=== PATIENT | male | born 1970 | race Two or more races ===

== ENCOUNTER 2021-03-13 09:34 | Inpatient (IN) | payer OTHER ==
[~2021-03-13] VITALS: Ht 170.2 cm; Wt 79.5 kg
[2021-03-13] MEDS ORDERED: BUPRENORPHINE HCL/NALOXONE HCL 8-2 MG SUBLINGUAL TABLET SL ONE ×2 (11:15→12:30)
[2021-03-13] MEDS ORDERED: ACETAMINOPHEN 325 MG TABLET PO PRN (11:30)
[2021-03-13 12:00] LABS: BASOPHILS % (AUTO) 0.7 % (0.0-2.0); EOSINOPHILS % (AUTO) 0.7 % (1.0-6.0); HEMATOCRIT 42.1 % (41-53); LYMPHOCYTES # (AUTO) 2.2 K/uL (1.0-4.8); LYMPHOCYTES % (AUTO) 27.7 % (22.0-44.0); MEAN CORPUSCULAR HEMOGLOBIN 29.8 pg (26.0-34.0); MEAN CORPUSCULAR HGB CONC 33.2 G/dL (31.0-37.0); MEAN CORPUSCULAR VOLUME 90 fL (80-100); MONOCYTES # (AUTO) 0.6 K/uL (0.1-1.0); NEUTROPHILS # (AUTO) 5.1 K/uL (1.8-7.7); NEUTROPHILS % (AUTO) 63.9 % (40.0-70.0); PLATELET COUNT (AUTO) 297 K/uL (150-450); RED BLOOD CELL COUNT(AUTO) 4.69 MIL/uL (4.50-5.90); RED CELL DISTRIBUTION WIDTH 13.4 % (11.5-14.5)
[2021-03-13 12:07] LABS: ANION GAP 9 mmol/L (8-16); CARBON DIOXIDE 28 mmol/L (22-29); CHLORIDE 100 mmol/L (98-107); CREATININE 0.56 mg/dL (0.60-1.30); GLOMERULAR FILTR. RATE CALC > 60 mL/min (>60); GLUCOSE,RANDOM 96 mg/dL (70-110); POTASSIUM 3.7 mmol/L (3.5-5.1); SODIUM SERUM 137 mmol/L (136-145); UREA NITROGEN, BLOOD 11 mg/dL (7-18)
[2021-03-13 12:11] LABS: COVID AG,FIA SOURCE NASOPHARYNGEAL
[2021-03-13 12:14] LABS: ALANINE AMINOTRANSFERASE 62 U/L (12-78); ALKALINE PHOSPHATASE 117 U/L (46-116); ASPARTATE AMINOTRANSFERASE 39 U/L (15-37); BILIRUBIN,TOTAL 0.5 mg/dL (0.1-1.0)
[2021-03-13] MEDS ORDERED: LORazepam 2 MG/ML VIAL IM ONE (12:30)
[2021-03-13] MEDS ORDERED: ONDANSETRON HCL 4 MG TABLET PO ONE (12:30)
[2021-03-13 13:44] VITALS: BP 131/76
[2021-03-13] MEDS ORDERED: SODIUM CHLORIDE 0.9% 1,000 ML IV ONE (13:45)
[2021-03-13] MEDS ORDERED: LOPERAMIDE HCL 2 MG CAPSULE PO PRN (13:45)
[2021-03-13] MEDS: LORazepam 2 MG/ML VIAL IVP PRN (16:08)
[2021-03-13 17:08] VITALS: BP 137/81
[2021-03-13] MEDS: TEMAZEPAM 15 MG CAPSULE PO SCH (20:21)
[2021-03-13 20:34] VITALS: BP 119/59
[2021-03-13 21:21] LABS: AMPHET/METH SCREEN,URINE POSITIVE (NEGATIVE); BARBITURATE SCREEN, URINE NEGATIVE (NEGATIVE); BENZODIAZEPINES SCREEN,URINE NEGATIVE (NEGATIVE); CANNABINOID SCREEN,URINE POSITIVE (NEGATIVE); COCAINE SCREEN,URINE POSITIVE (NEGATIVE); METHADONE SCREEN, URINE NEGATIVE (NEGATIVE); OPIATE SCREEN,URINE POSITIVE (NEGATIVE); PHENCYCLIDINE SCREEN,URINE NEGATIVE (NEGATIVE)
[2021-03-13 22:35] VITALS: BP 130/69
[2021-03-14] MEDS: DICYCLOMINE HCL 10 MG CAPSULE PO PRN ×2 (02:22→11:14)
[2021-03-14 04:30] VITALS: BP 115/75
[2021-03-14] MEDS: LORazepam 2 MG/ML VIAL IVP PRN ×2 (04:48→14:44)
[2021-03-14] MEDS: METOCLOPRAMIDE HCL 5 MG/ML 2 ML VIAL IVP PRN ×2 (08:09→23:46)
[2021-03-14 08:34] VITALS: BP 144/77
[2021-03-14 12:00] VITALS: BP 137/79
[2021-03-14] MEDS: ACETAMINOPHEN 500 MG TABLET PO PRN (14:45)
[2021-03-14 16:23] VITALS: BP 127/69
[2021-03-14 20:00] VITALS: BP 131/80
[2021-03-14] MEDS: TEMAZEPAM 15 MG CAPSULE PO SCH (21:18)
[2021-03-15] MEDS: ACETAMINOPHEN 500 MG TABLET PO PRN (03:56)
[2021-03-15 04:00] VITALS: BP 123/82
[2021-03-15] MEDS: DICYCLOMINE HCL 10 MG CAPSULE PO PRN (06:33)
[2021-03-15 07:31] VITALS: BP 125/78
[2021-03-15] MEDS ORDERED: SODIUM CHLORIDE IV ONE (12:00)
[2021-03-15] MEDS: NICOTINE 14 MG/24 HOUR PATCH TD SCH (12:07)
[2021-03-15] MEDS ORDERED: SODIUM CHLORIDE 0.9% 500 ML IV ONE (12:15)
[2021-03-15] MEDS: METOCLOPRAMIDE HCL 5 MG/ML 2 ML VIAL IVP PRN ×2 (17:11→20:46)
[2021-03-15 20:40] VITALS: BP_SYST 152; BP_SYST 161; BP_DIAS 83; BP_DIAS 90
[2021-03-15] MEDS: TEMAZEPAM 15 MG CAPSULE PO SCH (20:47)
[2021-03-16] MEDS: LORazepam 2 MG/ML VIAL IVP PRN ×2 (00:40→12:21)
[2021-03-16] MEDS: ACETAMINOPHEN 500 MG TABLET PO PRN (00:41)
[2021-03-16] MEDS ORDERED: MAGNESIUM HYDROXIDE SUSPENSION 30 ML UDCUP PO ONE (04:00)
[2021-03-16] MEDS ORDERED: DOCUSATE SODIUM 100 MG CAPSULE PO ONE (04:00)
[2021-03-16 05:17] VITALS: BP 109/75
[2021-03-16 08:17] VITALS: BP 124/81
[2021-03-16] MEDS: NICOTINE 14 MG/24 HOUR PATCH TD SCH (08:20)
[2021-03-16] MEDS: DICYCLOMINE HCL 10 MG CAPSULE PO PRN (10:35)
[2021-03-16 11:22] VITALS: BP 135/84
[2021-03-16 15:35] VITALS: BP 137/83
[2021-03-16] MEDS: ACETAMINOPHEN/CODEINE 300-15 MG TABLET PO PRN ×2 (17:12→23:41)
[2021-03-16 19:38] VITALS: BP 132/77
[2021-03-16] MEDS: TEMAZEPAM 15 MG CAPSULE PO SCH (20:52)
[2021-03-16 23:36] VITALS: BP 122/80
[2021-03-17] MEDS: ACETAMINOPHEN 500 MG TABLET PO PRN (02:38)
[2021-03-17] MEDS: DICYCLOMINE HCL 10 MG CAPSULE PO PRN (02:50)
[2021-03-17 04:23] VITALS: BP 124/80
[2021-03-17 07:59] VITALS: BP 127/84
[2021-03-17] MEDS: NICOTINE 14 MG/24 HOUR PATCH TD SCH (08:09)
[2021-03-17 15:28] VITALS: BP 132/81
[2021-03-17] MEDS: ACETAMINOPHEN/CODEINE 300-15 MG TABLET PO PRN (15:35)
[2021-03-17 19:35] VITALS: BP 125/79
[2021-03-17] MEDS: TEMAZEPAM 15 MG CAPSULE PO SCH (20:17)
== END 2021-03-18 11:07 | DRG 897 ==
LOC: EMS 09:37 → 6N 12:48 → 6S 13:25
PROVIDERS: ADMIT Internal Medicine; ATTEND Internal Medicine
DX: F11.23 Opioid dependence with withdrawal (principal); F17.200 Nicotine dependence, unspecified, uncomplicated; Z20.822 Contact with and (suspected) exposure to COVID-19
CPT/HCPCS: 80053; 85025; 99285; G0480; J2060; J2765; J7030; J7040; J7131; Q0162